=== PATIENT | female | born 1960 | race Caucasian/White ===

== ENCOUNTER → 2016-12-16 | Outpatient (CLI) | payer MEDICARE ==
[~2016-12-16] MED LIST: ALPRAZOLAM0.25 MG PO; KCL PO; LORTAB 10-3251 EACH PO; MAGNESIUM OXID200 MG PO; MELOXICAM15 MG PO; NEXIUM PO; PERCOCET 10/31 UDTA1 PO; PHENERGAN25 MG PO; SERTRALINE HCL50 MG PO; SYNTHROID300 MCG PO; UCERIS9 MG PO; VICODIN PO; VIT B-12 PO; ZYLOPRIM100 MG DOB
--- NOTE | ~2016-12-16 | CR4 ---
[facility] A Service of [facility] & [facility] RADIOLOGY TEXT RESULTS PATIENT: MARIA TERESA ALMEIDA LOCATION: [facility] : 56 UNIT #: [id number] AGE: [address]: ELSA CALABRESE APRN SEX: F ORDER DR: [id number] [facility] [address] [place], [place] [address] [id number] O MR#: [id number] #: [id number] NAME: MARIA TERESA ALMEIDA : 1960 SEX: F STUDY DATE/TIME: 12/16/2016 14:16 UNIT: [facility] ROOM: STUDY DESCRIPTION: CR Abdomen Flat Upright or Dec Attending Physician: Elsa Calabrese A.P.R.N. Referring Physician: Elsa Calabrese A.P.R.N. Ordering Physician: Elsa Calabrese A.P.R.N. Primary Care Physician: No Primary Care Physician MEDICAL IMAGING REPORT This report is preliminary unless electronic signature is present EXAM Flat and upright abdomen INDICATION 56-year-old female with abdominal pain, nausea and vomiting for 2 weeks. COMPARISON No comparisons. FINDINGS No free air under the diaphragm on upright view. No dilated loops of bowel. Gas in the colon. Surgical clips in the right side of the abdomen. IMPRESSION Nonobstructive bowel gas pattern. Dictated by... Mack Goldstein M.D. THIS IS AN ELECTRONICALLY VERIFIED REPORT Mack Goldstein M.D. at 12/17/2016 8:39 AM SANTIAGO/jama TD: 12/16/2016 19:06 JOB #: [id number] MEDICAL IMAGING REPORT Page 1 of 1 COPY
[2016-12-16 14:33] LABS: HEMATOCRIT 42.7 % (35.0-45.0); HEMOGLOBIN 13.9 gm/dL (12.0-16.0); MEAN CELL VOLUME 95.2 FL (83-96); MEAN CORPUSCULAR HGB CONC 32.6 g/dL (30-36); MEAN PLATELET VOLUME 8.6 FL (6.5-11.5); RED BLOOD COUNT 4.49 X10e (3.90-5.30); RED CELL DISTRIBUTION WIDTH 15.5 % (11.0-15.5); WHITE BLOOD COUNT 13.7 X10e3 (4.0-10.5)
[2016-12-16 15:31] LABS: ALBUMIN SERUM 3.4 g/dL (3.5-5.0); ALKALINE PHOSPHATASE 284 U/L (32-92); ALT (SGPT) 94 U/L (10-40); AMYLASE 31 U/L (0-46); AST (SGOT) 94 U/L (10-42); BILIRUBIN,TOTAL 0.4 mg/dL (0.2-2.0); BLOOD UREA NITROGEN 14 mg/dL (9-23); CALCIUM SERUM 10.2 mg/dL (8.4-10.2); CARBON DIOXIDE 29 mmol/L (22-31); CHLORIDE 99 mmol/L (100-111); GLOM FILT RATE Estimated ABOVE60 mL/min (>60); GLUCOSE FASTING 134 mg/dL (70-110); LIPASE 34 U/L (22-51); POTASSIUM 4.1 mmol/L (3.5-5.1); PROTEIN TOTAL SERUM 7.3 g/dL (6.0-8.3); SODIUM 136 mmol/L (135-145)
== END | disposition home or self-care (01) ==
LOC: CRAD 13:48
PROVIDERS: Nurse Practitioner Family
DX: R10.9 Unspecified abdominal pain (principal); R11.2 Nausea with vomiting, unspecified
CPT/HCPCS: 36415; 74020; 80053; 82150; 83690; 85027; 85652; 86140

== ENCOUNTER 2017-05-14 17:32 | Inpatient (IN) | payer MEDICARE ==
[~2017-05-14] VITALS: Ht 162.6 cm; Wt 82.8 kg
--- NOTE | ~2017-05-14 | HP ---
Unit #: [id number] #: [id number] Patient: MARIA TERESA ALMEIDA [id number] [address] [address] [id number] I MR#: [id number] NAME: MARIA TERESA ALMEIDA ROOM: 338 Age: 56 Sex: F Admission Date: 05/14/2017 : 1960 Attending Physician: Jose Rojas M.D. Primary Care Physician: No Primary Care Physician HISTORY AND PHYSICAL CHIEF COMPLAINT Diarrhea, nausea, vomiting, decreased appetite, generalized weakness. DISCUSSION This is a 56-year-old female with history of Crohn disease, history of GERD, gastritis, small hiatal hernia, hypothyroidism, gout, anxiety, depression, history of abdominal ventral hernia status post multiple surgeries. She presented to the emergency room with the chief complaint of having generalized weakness. She says she has been feeling sick the last couple of weeks. She has been having diarrhea, nausea, vomiting. On workup in the emergency room she was found to have potassium of 1.9 and eventually was admitted. She denies chest pain. She denies fever, chills, cough or any other complaint. PAST MEDICAL HISTORY 1. History of Crohn disease. 2. History of GERD/gastritis/small hiatal hernia. 3. Hypothyroidism. 4. Gout. 5. Anxiety/depression. PAST SURGICAL HISTORY 1. Hysterectomy. 2. Cholecystectomy. 3. History of abdominal hernia status post multiple surgeries. 4. History of colon resection. 5. Appendectomy. SOCIAL HISTORY She smokes 1 pack daily for 30 years. She denies alcohol or illicit drug use. FAMILY HISTORY Positive for mother having colon cancer and father having kidney cancer and bypass (CABG). MEDICATIONS FROM HOME 1. Nexium. 2. Phenergan. 3. Synthroid. 4. Percocet. 5. Alprazolam. 6. Sertraline. 7. Zyloprim. Unit #: [id number] #: [id number] Patient: MARIA TERESA ALMEIDA ALLERGIES Adhesive tape, which causes rash; prednisone, Erythromycin. REVIEW OF SYSTEMS All review of systems is negative except as in history of present illness. PHYSICAL EXAMINATION GENERAL: Middle-aged female lying in bed comfortably. Currently not in any distress. She is alert, awake, oriented x3. CURRENT VITALS: Temperature is 98.3, heart rate 117, respirations 16, blood pressure 125/75, oxygen 98% on room air. HEENT: Pupils are equal and reactive to light and accommodation. Head is normocephalic and atraumatic. NECK: Neck is supple. No JVD. HEART: S1, S2. Regular rate and rhythm. LUNGS: Lungs are clear to auscultation. No rhonchi. No wheezing. ABDOMEN: Abdomen is soft, nondistended. Bowel sounds are positive. Midline scar is positive. EXTREMITIES: Inspection is normal. No cyanosis. No clubbing. No edema. NEUROLOGIC: No focal neurologic deficits. Cranial nerves II-XII intact. Moving all extremities. Power 5/5 on both sides. DIAGNOSTIC STUDIES LABORATORY WORKUP: Sodium 135, potassium 1.9, chloride 88, CO2 31, glucose 139, BUN 5, creatinine 1.3, alkaline phosphatase 175; otherwise, LFTs within normal limits. Albumin 2.8. White count 11.4, hemoglobin 11.6, hematocrit 33.9, platelets 387. IMAGING: Chest x-ray normal. ASSESSMENT AND PLAN 1. Severe hypokalemia. Replace. 2. Generalized weakness secondary to hypokalemia. 3. Nausea, vomiting and diarrhea with history of multiple abdominal surgeries. I will go ahead and get an abdominal series, stool for C. diff. and IV Zofran, IV Protonix. Give full liquid diet. 4. History of Crohn disease. 5. History of GERD/gastritis/small hiatal hernia. 6. Hypothyroidism. 7. History of gout. 8. Anxiety/depression. 9. Tobacco abuse. 10. DVT prophylaxis. Will place the patient on Lovenox. Dictated by Jorge Luis Mclean/sameer TD: 05/15/2017 09:18 JOB #: [id number] Unit #: [id number] #: [id number] Patient: MARIA TERESA ALMEIDA HISTORY AND PHYSICAL Page 1 of 1 X X HISTORY AND PHYSICAL
--- NOTE | ~2017-05-14 | CR2 ---
[facility] A Service of [facility] RADIOLOGY TEXT RESULTS PATIENT: MARIA TERESA ALMEIDA LOCATION: [facility] 338-01 : [birth year] UNIT #: [id number] AGE: [address]: Jose Rojas MD SEX: F ORDER DR: [id number] [address] [id number] [place], [place] [address] [id number] I MR#: [id number] Acc #: [id number] NAME: MARIA TERESA ALMEIDA : 1960 SEX: F STUDY DATE/TIME: 05/14/2017 22:21 UNIT: [address] ROOM: [facility] STUDY DESCRIPTION: CR Abdomen Acute Series Attending Physician: Jose Rojas M.D. Ordering Physician: Jose Rojas M.D. Primary Care Physician: No Primary Care Physician MEDICAL IMAGING REPORT This report is preliminary unless electronic signature is present EXAM Chest x-ray, 05/14/2017. HISTORY 56-year-old female, hospital inpatient with 3-week history of abdomen pain, nausea and vomiting. She has a history of Crohn's disease. TECHNIQUE Flat and upright abdomen images with AP upright chest x-ray. FINDINGS Abdomen images show mucosal thickening throughout the visualized descending colon, but also likely involving portions of the transverse colon. The patient has a known history of Crohn's disease, the findings likely represent active colon inflammation. No visible free air. No bowel dilatation to suggest obstruction. Surgical clips in the right upper quadrant. Chest x-ray is negative. The lungs appear clear. IMPRESSION 1. Radiographic findings suggesting long segment colitis involving at least the descending colon and likely portions of the transverse colon. Active Crohn's disease should be considered given the history. 2. No bowel dilatation to suggest obstruction. No free intraperitoneal air. 3. Negative chest. STAT * RESULT Dictated by... Yobany Betancourt M.D. [facility] A Service of [facility] RADIOLOGY TEXT RESULTS PATIENT: MARIA TERESA ALMEIDA LOCATION: [facility] 338-01 : 56 UNIT #: [id number] AGE: [address]: Jose Rojas MD SEX: F ORDER DR: THIS IS AN ELECTRONICALLY VERIFIED REPORT Yobany Betancourt M.D. at 05/15/2017 5:59 AM Dipak TD: 05/14/2017 23:10 JOB #: [id number] MEDICAL IMAGING REPORT Page 1 of 1 COPY
--- NOTE | ~2017-05-14 | EKG ---
PATIENT: MARIA TERESA ALMEIDA UNIT #: [id number] Ventricular Rate: 104 BPM Atrial Rate: 104 BPM P-R Interval: 168 ms QRS Duration: 74 ms Q-T Interval: 304 ms QTC Calculation(Bezet): 399 ms P [place]: 39 degrees Calculated R [place]: -3 degrees Calculated T [place]: 165 degrees Diagnosis Line: Sinus tachycardia Diagnosis Line: Low voltage QRS Diagnosis Line: Nonspecific ST and T wave abnormality Diagnosis Line: Abnormal ECG Diagnosis Line: No previous ECGs available Diagnosis Line: Confirmed by KATHY ROWE MD ([id number]) on Diagnosis Line: 05/16/2017 4:43:39 PM INTERPRETING MD: GORGE
--- NOTE | ~2017-05-14 | CR72 ---
[facility] A Service of [facility] RADIOLOGY TEXT RESULTS PATIENT: MARIA TERESA ALMEIDA LOCATION: [facility] 338-01 : 56 UNIT #: [id number] AGE: [address]: Arie Mendiola MD SEX: F ORDER DR: [id number] [facility] [address] [place], [place] [address] [id number] I MR#: [id number] Acc #: [id number] NAME: MARIA TERESA ALMEIDA : 1960 SEX: F STUDY DATE/TIME: 05/14/2017 18:31 UNIT: [address] ROOM: [facility] STUDY DESCRIPTION: CR Chest Single View Portable Attending Physician: Jose Rojas M.D. Ordering Physician: Fish Manjarrez M.D. Primary Care Physician: Primary Care Physician No MEDICAL IMAGING REPORT This report is preliminary unless electronic signature is present EXAM Portable chest x-ray single view HISTORY Generalized weakness, short of air with activity, nausea. Symptoms starting 3 weeks ago. COMMENT Single frontal portable view of the chest timed 18:31 on 05/14/2017 compared to 04/09/2011. There is normal heart size. No acute infiltrate. No pleural effusion. No pneumothorax. No congestive failure. Small amount of chronic scarring again identified at lung bases. IMPRESSION No active disease. Dictated by... Beronica Vargas M.D. THIS IS AN ELECTRONICALLY VERIFIED REPORT Beronica Vargas M.D. at 05/17/2017 1:57 PM Juan Carlos TD: 05/15/2017 09:48 JOB #: [id number] MEDICAL IMAGING REPORT Page 1 of 1 COPY
[~2017-05-14 17:32] MED LIST changes: -LORTAB 10-3251 EACH PO; -MAGNESIUM OXID200 MG PO; -MELOXICAM15 MG PO
[2017-05-14 18:41] LABS: BASOPHIL# 0.1 X10e3 (0-0.3); BASOPHIL% 0.6 % (0-2.5); EOSINOPHIL% 0.4 % (0.0-7.0); HEMATOCRIT 33.9 % (35.0-45.0); HEMOGLOBIN 11.6 gm/dL (12.0-16.0); LYMPHOCYTE# 3.8 X10e3 (1.0-3.5); LYMPHOCYTE% 33.1 % (17.0-45.0); MEAN CELL VOLUME 93.3 FL (83-96); MEAN CORPUSCULAR HGB CONC 34.3 g/dL (30-36); MEAN PLATELET VOLUME 8.3 FL (6.5-11.5); MONOCYTE# 0.3 X10e3 (0-1.0); MONOCYTE% 2.9 % (3.0-12.0); NEUTROPHIL# 7.2 X10e3 (1.5-7.1); PLATELET COUNT 387 X10e3 (140-420); RED BLOOD COUNT 3.63 X10e (3.90-5.30); RED CELL DISTRIBUTION WIDTH 20.7 % (11.0-15.5); WHITE BLOOD COUNT 11.4 X10e3 (4.0-10.5)
[2017-05-14 18:42] LABS: DIFF IND NO
[2017-05-14 19:03] LABS: ALBUMIN SERUM 2.8 g/dL (3.5-5.0); ALKALINE PHOSPHATASE 175 U/L (32-92); ALT (SGPT) 17 U/L (10-40); AST (SGOT) 61 U/L (10-42); BILIRUBIN, DIRECT 0.7 mg/dL (0.0-0.2); BILIRUBIN,INDIRECT 0.8 mg/dL (0.0-0.9); BILIRUBIN,TOTAL 1.5 mg/dL (0.2-2.0); CALCIUM SERUM 6.2 mg/dL (8.4-10.2); CARBON DIOXIDE 31 mmol/L (22-31); CHLORIDE 88 mmol/L (100-111); CREATININE SERUM 1.3 mg/dL (0.6-1.4); GLOM FILT RATE Estimated 45.2 mL/min (>60); GLUCOSE FASTING 139 mg/dL (70-110); PROTEIN TOTAL SERUM 6.6 g/dL (6.0-8.3); SODIUM 135 mmol/L (135-145)
[2017-05-14 19:04] LABS: BLOOD UREA NITROGEN <5 mg/dL (9-23); BUN/CREATININE RATIO 3.84
[2017-05-14 19:06] LABS: POTASSIUM 1.9 mmol/L (3.5-5.1)
[2017-05-14] MEDS ORDERED: LORTAB 10-3251 EACH PO (20:21)
[2017-05-14] MEDS ORDERED: MELOXICAM15 MG PO (20:21)
[2017-05-14 21:17] LABS: POC - CKMB 4.5 ng/mL (0.0-7.9); POC - TROPONIN <0.05 ng/mL (<=0.05)
[2017-05-15 05:40] LABS: POC - CKMB 5.8 ng/mL (0.0-7.9); POC - TROPONIN <0.05 ng/mL (<=0.05)
[2017-05-15 06:01] LABS: BASOPHIL# 0.1 X10e3 (0-0.3); BASOPHIL% 0.6 % (0-2.5); EOSINOPHIL# 0.1 X10e3 (0-0.7); HEMATOCRIT 28.8 % (35.0-45.0); LYMPHOCYTE# 2.8 X10e3 (1.0-3.5); MEAN CELL VOLUME 94.5 FL (83-96); MEAN CORPUSCULAR HEMOGLOBIN 32.7 PG (28-34); MEAN CORPUSCULAR HGB CONC 34.6 g/dL (30-36); MEAN PLATELET VOLUME 8.2 FL (6.5-11.5); MONOCYTE# 0.4 X10e3 (0-1.0); MONOCYTE% 4.1 % (3.0-12.0); NEUTROPHIL# 6.1 X10e3 (1.5-7.1); NEUTROPHIL% 64.3 % (40-75); PLATELET COUNT 329 X10e3 (140-420); RED BLOOD COUNT 3.05 X10e (3.90-5.30); RED CELL DISTRIBUTION WIDTH 21.1 % (11.0-15.5); WHITE BLOOD COUNT 9.5 X10e3 (4.0-10.5)
[2017-05-15 06:34] LABS: DIFF IND NO
[2017-05-15 07:12] LABS: CARBON DIOXIDE 29 mmol/L (22-31); CHLORIDE 98 mmol/L (100-111); CREATININE SERUM 1.1 mg/dL (0.6-1.4); GLOM FILT RATE Estimated 55.3 mL/min (>60); GLUCOSE FASTING 98 mg/dL (70-110); SODIUM 138 mmol/L (135-145)
[2017-05-15 07:28] LABS: BLOOD UREA NITROGEN <5 mg/dL (9-23); BUN/CREATININE RATIO 4.54; CALCIUM SERUM 5.6 mg/dL (8.4-10.2); MAGNESIUM 0.7 mg/dL (1.6-3.0); POTASSIUM 2.2 mmol/L (3.5-5.1)
[2017-05-16 01:18] LABS: HEMATOCRIT 26.5 % (35.0-45.0); HEMOGLOBIN 9.2 gm/dL (12.0-16.0); MEAN CELL VOLUME 94.4 FL (83-96); MEAN CORPUSCULAR HEMOGLOBIN 32.6 PG (28-34); MEAN CORPUSCULAR HGB CONC 34.6 g/dL (30-36); MEAN PLATELET VOLUME 8.6 FL (6.5-11.5); RED BLOOD COUNT 2.81 X10e (3.90-5.30); RED CELL DISTRIBUTION WIDTH 21.8 % (11.0-15.5); WHITE BLOOD COUNT 8.4 X10e3 (4.0-10.5)
[2017-05-16 01:27] LABS: CARBON DIOXIDE 24 mmol/L (22-31); CHLORIDE 103 mmol/L (100-111); GLOM FILT RATE Estimated 62.1 mL/min (>60); GLUCOSE FASTING 106 mg/dL (70-110); SODIUM 139 mmol/L (135-145)
[2017-05-16 01:28] LABS: BLOOD UREA NITROGEN <5 mg/dL (9-23)
[2017-05-16 01:29] LABS: CALCIUM SERUM 5.6 mg/dL (8.4-10.2); POTASSIUM 2.7 mmol/L (3.5-5.1)
[2017-05-17 07:46] LABS: CARBON DIOXIDE 20 mmol/L (22-31); CHLORIDE 107 mmol/L (100-111); GLOM FILT RATE Estimated 62.1 mL/min (>60); GLUCOSE FASTING 85 mg/dL (70-110); PHOSPHOROUS 2.1 mg/dL (2.5-4.6); SODIUM 138 mmol/L (135-145)
[2017-05-17 07:52] LABS: BLOOD UREA NITROGEN <5 mg/dL (9-23)
[2017-05-17 07:53] LABS: CALCIUM SERUM 5.7 mg/dL (8.4-10.2); MAGNESIUM 0.8 mg/dL (1.6-3.0)
[2017-05-18 12:34] LABS: BLOOD UREA NITROGEN <5 mg/dL (9-23); BUN/CREATININE RATIO 7.14; CALCIUM SERUM 6.3 mg/dL (8.4-10.2); CARBON DIOXIDE 21 mmol/L (22-31); CHLORIDE 105 mmol/L (100-111); CREATININE SERUM 0.7 mg/dL (0.6-1.4); GLOM FILT RATE Estimated 95.5 mL/min (>60); GLUCOSE FASTING 188 mg/dL (70-110); MAGNESIUM 1.4 mg/dL (1.6-3.0); PHOSPHOROUS 1.9 mg/dL (2.5-4.6); POTASSIUM 4.3 mmol/L (3.5-5.1); SODIUM 138 mmol/L (135-145)
[2017-05-18] MEDS ORDERED: KCL PO (16:07)
[2017-05-18] MEDS ORDERED: MAGNESIUM OXID200 MG PO (16:08)
== END 2017-05-18 18:30 | disposition home or self-care (01) | DRG 387 ==
LOC: CED 17:32 → CEDOF 20:30 → CED 20:58 → CEDOF 20:58 → C3A PCU 21:59 → CEDOF 05-16 15:10 → C3A PCU 05-17 07:01
PROVIDERS: Emergency Medicine; Family Medicine; Internal Medicine
DX: K50.90 Crohn's disease, unspecified, without complications (principal); E83.42 Hypomagnesemia; E87.6 Hypokalemia; K21.9 Gastro-esophageal reflux disease without esophagitis; E03.9 Hypothyroidism, unspecified; F41.9 Anxiety disorder, unspecified; F32.9 Major depressive disorder, single episode, unspecified; F17.200 Nicotine dependence, unspecified, uncomplicated; M10.9 Gout, unspecified; Z90.49 Acquired absence of other specified parts of digestive tract; Z90.710 Acquired absence of both cervix and uterus; Z88.1 Allergy status to other antibiotic agents; Z88.8 Allergy status to other drugs, medicaments and biological substances; Z80.0 Family history of malignant neoplasm of digestive organs; Z80.51 Family history of malignant neoplasm of kidney; Z82.49 Family history of ischemic heart disease and other diseases of the circulatory system
CPT/HCPCS: 36415; 71010; 74022; 80048; 80076; 82553; 82947; 83735; 84100; 84484; 85025; 85027; 87045; 87427; 87493; 87899; 93005; 96361; 96374; 99285; C9113; J1650; J2405; J2550; J3475; J3480; J7060